=== PATIENT | female | born 1960 | race Caucasian/White ===

== ENCOUNTER 2023-05-31 08:33 | Outpatient (AMB) | payer OTHER, SELFPAY ==
[2023-05-31 08:36] VITALS: BP 120/80; PULSE 63; O2SAT 98; BMI 21.5
--- NOTE | 2023-05-31 08:36 | A.OFFPC_ITS ---
Vital Signs 05/31/23 08:36 Height 5 ft Weight 110 lb BMI 21.5 BP 120/80 Blood Pressure Location Lt brachial Position Sitting Pulse 63 Pulse Source Pulse Oximeter Pulse Oximetry (%) 98 Oxygen Delivery Method Room Air Intake Visit Reasons: Physical Exam Intake Note: Pt is here today for a PE. Pt is having sciatic pain on the L side since January. Allergies No Known Allergies Allergy (Verified 05/31/23 08:39) Medication List - Last Reconciled 05/31/23 by Kriss Dorsey MD anastrozole 1 mg PO DAILY Tobacco use date assessed: 05/31/23 Dental Screening Dental Screen Date: 05/31/23 Did you have a dental visit in the last 12 months?: Yes Did you have a dental problem in the last 6 months where you did not have access to dental care?: No Was dental information given to patient?: Patient has dentist HPI Physical Exam HPI Details Pt presents for PE. Pt had L sciatica pain(started on the left buttock radiating to left lower extremity worse when sitting or starting to walk) since Jan, better now with massage therapy. [facility] Medical History BRCA gene mutation positive Normal pelvic exam Breast CA Annual physical exam Surgical History H/O bilateral oophorectomy Family History Father Diabetes Prostate cancer Lung cancer Mother No problems noted. Social History Household Members Other:: lives with boyfriend, no children, exercise regularly, Housing: House Patient Tobacco Use Status: Former Tobacco user (15 years ago) e-Cigarette/Vaping Use: Never Used Current occupational status: employed Cognitive needs: No Hearing needs: No Vision needs: Yes Questionnaire PHQ-9 Over the last 2 weeks, how often have you been bothered by any of the following problems? 1. Little interest or pleasure in doing things: not at all 2. Feeling down, depressed, or hopeless: not at all 3. Trouble falling or staying asleep, or sleeping too much: not at all 4. Feeling tired or having little energy: not at all 5. Poor appetite or overeating: not at all 6. Feeling bad about yourself - or that you are a failure or have let yourself or your family down: not at all 7. Trouble concentrating on things, such as reading the newspaper or watching television: not at all 8. Moving or speaking so slowly that other people could have noticed. Or the opposite - being so fidgety or restless that you have been moving around a lot more than usual: not at all 9. Thoughts that you would be better off or of hurting yourself in some way: not at all Total score: 0 Depression Screening Interpretation: Negative Depression Screening Done: Yes Source: Developed by Drs. Octavio Urban, Felecia Hook, Yovani Villasenor and colleagues, with an educational arnaldo from [employer]. Thrive Questionnaire Date Thrive assessed: 05/31/23 I am a: Patient What is your living situation today?: I have a steady place to live Within the past 12 months, did the food you bought not last and you didn't have the money to get more?: Never true Within the past 12 months, did you worry whether your food would run out before you got money to buy more?: Never true Do you have trouble paying for medicines?: No Do you have trouble getting transportation to medical appointments?: No Do you have trouble paying your heating and electricity bill?: No Do you have trouble taking care of your child, family member or friend?: No Do you have trouble with day-to-day activities such as bathing, preparing meals, shopping, managing finances, etc.?: No Are you currently unemployed and looking for a job?: No Are you interested in more education?: No Please select the resources that you would like help with: None Currently or been in a relationship where the following occur: no concerns reported THRIVE Score: 0 AUDIT C Alcohol Use Questionnaire (AUDIT-C) 1. How often do you have a drink containing alcohol?: Monthly or less 2. How many drinks containing alcohol do you have on a typical day when you are drinking?: 1 or 2 3. How often do you have six or more drinks on one occasion?: Never Total Score: 1 HENRIETTA-7 AMB Questionnaire HENRIETTA-7 Date HENRIETTA - 7 assessed: 05/31/23 Feeling nervous, anxious, or on edge: 0 = Not at all Not being able to stop or control worryin = Not at all Worrying too much about different things: 0 = Not at all Trouble relaxin = Not at all Being so restless that it is hard to sit still: 0 = Not at all Becoming easily annoyed or irritable: 0 = Not at all Feeling afraid as if something awful might happen: 0 = Not at all Total HENRIETTA-7 score (0-4 normal; 5-9 mild; 10-14 moderate; 15-21 severe): 0 Source: Developed by Drs. Octavio Urban, Felecia Hook, Yovani Villasenor and colleagues, with an educational arnaldo from [employer]. Review of Systems Const All systems reviewed & are unremarkable except as noted in HPI and below Reports no additional complaints Eyes Reports no additional complaints ENT Reports no additional complaints Card Reports no additional complaints Resp Reports no additional complaints GI Reports no additional complaints Physical exam (Primary Care) Vital Signs: Last Vital Signs Pulse 63 05/31/23 08:36 BP 120/80 05/31/23 08:36 Pulse Ox 98 05/31/23 08:36 Oxygen Delivery Method Room Air 05/31/23 08:36 BMI result Body Mass Index 21.5 Tobacco/Smoking Status: Tobacco use Status Tobacco use date assessed 05/31/23 05/31/23 08:44 Patient Tobacco Use Status Former Tobacco user (15 05/31/23 08:44 years ago) e-Cigarette/Vaping Use Never Used 05/31/23 08:38 PHQ-9: PHQ-9 Score PHQ-9: Total score 0 05/31/23 08:56 Depression Screening Interpretation: Negative Thrive Assessment: Date of Thrive Assessment Date Thrive assessed 05/31/23 05/31/23 08:44 Currently or been in a relationship where the following occur: no concerns reported Const General: no acute distress HENMT Head: Yes normal to inspection Ears: hearing grossly normal bilaterally General nose exam: Normal external nose present Face and sinus: Yes normal facial exam Mouth: Normal oral and palatal mucosa present Throat: Yes posterior oropharynx normal Eyes General: appearance normal, both eyes and all related structures Neck Neck: Yes no lymphadenopathy and Yes supple Resp Effort & Inspection: normal respiratory effort Auscultation: clear to auscultation bilaterally Cardio Rhythm: regular rhythm Heart sounds: S1 normal heart sound present and S2 normal heart sound present GI Inspection: Yes normal to inspection Palpation (GI): Soft to palpation Percussion: Yes normal to percussion Auscultation: normal bowel sounds Back/Spine/Pelvis Thoracic/Lumbar Spine: thoraco-lumbar ROM normal, straight leg raise negative bilaterally, No paraspinal muscle tenderness and No lumbar spinal tenderness Assessment and Plan Assessment & Plan (1) Annual physical exam: Code(s): Z00.00 - Encounter for general adult medical examination without abnormal findings Plan: Well-balanced diet regular physical activity discussed with the patient. She will have a DEXA by Oncology. Patient had colonoscopy in September 12, consistent with 1 polyp repeat in 5 years, by Dr. Bowens (2) Breast CA: Comment: Right , s/p lumpectomy, s/p RHx and Chemo 2019, f/u [facility] Code(s): C50.919 - Malignant neoplasm of unspecified site of unspecified female breast Plan: Follow-up with [facility] oncology (3) Sciatica: Code(s): M54.30 - Sciatica, unspecified side Plan: Patient was given stretching lower back exercises and was advised to have PT but she declined (4) Hx of colonoscopy: Comment: 09/12 1 polyp, Dr. Bowens Code(s): Z98.890 - Other specified postprocedural states Orders: Orders Lipid Panel Today C50.919 - Malignant neoplasm of unspecified site of unspecifie d female breast, Z00.00 - Encounter for general adult medical examination without abnormal findings TSH reflex Free T4 Today C50.919 - Malignant neoplasm of unspecified site of unspecified female breast, Z00.00 - Encounter for general adult medical examination without abnormal findings Vitamin D 25-OH Total Today C50.919 - Malignant neoplasm of unspecified site of unspecified female breast, Z00.00 - Encounter for general adult medical examination without abnormal findings Comprehensive [place]. Panel Fast 365 Days M54.30 - Sciatica, unspecified side, Z00.00 - Encounter for general adult medical examination without abnormal findings, Z98.890 - Other specified postprocedural states Complete Blood Count Auto Diff 365 Days M54.30 - Sciatica, unspecified side, Z00.00 - Encounter for general adult medical examination without abnormal findings, Z98.890 - Other specified postprocedural states TSH reflex Free T4 365 Days M54.30 - Sciatica, unspecified side, Z00.00 - Encounter for general adult medical examination without abnormal findings, Z98.890 - Other specified postprocedural states Vitamin D 25-OH Total 365 Days M54.30 - Sciatica, unspecified side, Z00.00 - Encounter for general adult medical examination without abnormal findings, Z98.890 - Other specified postprocedural states Comprehensive [place]. Panel Fast Today C50.919 - Malignant neoplasm of unspecified site of unspecified female breast, Z00.00 - Encounter for general adult medical examination without abnormal findings Complete Blood Count Auto Diff Today C50.919 - Malignant neoplasm of unspecified site of unspecified female breast, Z00.00 - Encounter for general adult medical examination without abnormal findings Lipid Panel 365 Days M54.30 - Sciatica, unspecified side, Z00.00 - Encounter for general adult medical examination without abnormal findings, Z98.890 - Other specified postprocedural states Coding Level of Care Code Est Pt Prev Care 40-64y(01420) Diagnoses Annual physical exam Z00.00 Breast CA C50.919 Sciatica M54.30 Hx of colonoscopy Z98.890
== END 2023-05-31 09:05 | disposition home or self-care (01) ==
PROVIDERS: PCP Internal Medicine; Visit Provider Internal Medicine
DX: Z00.00 Encounter for general adult medical examination without abnormal findings (principal); C50.919 Malignant neoplasm of unspecified site of unspecified female breast; M54.30 Sciatica, unspecified side; Z98.890 Other specified postprocedural states
CPT/HCPCS: 99396

== ENCOUNTER 2023-05-31 09:06 | Outpatient (REF) | payer OTHER, SELFPAY ==
[2023-05-31 11:35] LABS: MANUAL DIFF FLAG NO
[2023-05-31 11:41] LABS: Basophils Percent Auto 0.5 % (0-2); Eosinophils Absolute Auto 0.1 X10*3/uL (0.0-0.4); Eosinophils Percent Auto 1.4 % (0-4); Hematocrit 42.3 % (37.0-47.0); Imm Gran Abs Auto 0.01 X10*3/uL (0.00-0.03); Imm Gran Pct Auto 0.3 % (0.0-0.4); Lymphocytes Absolute Auto 1.3 X10*3/uL (1.2-4.9); Lymphocytes Percent Auto 36.1 % (20-40); Mean Corpuscular HGB Conc 33.1 g/dl (31.0-35.0); Mean Corpuscular Hemoglobin 30.4 pg (27.0-33.0); Mean Platelet Volume 9.9 fL (9.4-12.3); Monocytes Absolute Auto 0.4 X10*3/uL (0.1-1.2); Monocytes Percent Auto 9.8 % (2-11); Neutrophils Absolute Auto 1.9 x10*3/uL (2.0-8.3); Neutrophils Percent Auto 51.9 % (45-73); Platelet Count 189 X10*3/uL (160-400); Red Cell Distribution Width 13.9 % (11.0-16.0); White Blood Count 3.7 X10*3/uL (4.8-10.8)
[2023-05-31 12:35] LABS: Alanine Aminotransferase 23 U/L (0-31); Albumin Level 4.3 g/dL (3.5-5.0); Alkaline Phosphatase 62 U/L (39-117); Anion Gap 14 (12-20); Aspartate Amino Transferase 28 U/L (5-31); Bilirubin Total 0.4 mg/dL (0.0-1.0); Blood Urea Nitrogen 11 mg/dL (9-16); Calcium 9.9 mg/dL (8.4-10.2); Carbon Dioxide 26 mmol/L (22-29); Chloride 106 mmol/L (96-108); Cholesterol 223 mg/dL (<200); Estimated Glomerular Filt Rate > 60; Glucose Fasting 88 mg/dL (60-99); HDL Cholesterol 57 mg/dL (>40); LDL Cholesterol Calculated 153 mg/dL (<100); Potassium 4.2 mmol/L (3.3-5.1); Sodium 142 mmol/L (135-145); Total Protein 7.6 g/dL (6.5-8.0); Triglycerides 67 mg/dL (<150)
[2023-05-31 12:39] LABS: TSH reflex Free T4 1.43 uIU/mL (0.32-4.0); Vitamin D 25-OH Total 40.3 ng/mL (>30)
== END 2023-05-31 09:07 | disposition home or self-care (01) ==
LOC: HO.HMGCLDS 09:06
PROVIDERS: PCP Internal Medicine; Visit Provider Internal Medicine
DX: Z00.00 Encounter for general adult medical examination without abnormal findings (principal); C50.919 Malignant neoplasm of unspecified site of unspecified female breast
CPT/HCPCS: 36415; 80053; 80061; 82306; 84443; 85025

== ENCOUNTER 2024-06-16 08:26 | Outpatient (REF) | payer OTHER, SELFPAY ==
[2024-06-16 10:25] LABS: MANUAL DIFF FLAG NO
[2024-06-16 10:37] LABS: Basophils Percent Auto 0.8 % (0-2); Eosinophils Absolute Auto 0.1 X10*3/uL (0.0-0.4); Eosinophils Percent Auto 1.3 % (0-4); Hematocrit 41.3 % (37.0-47.0); Hemoglobin 13.8 g/dl (12.0-16.0); Imm Gran Abs Auto 0.02 X10*3/uL (0.00-0.03); Imm Gran Pct Auto 0.4 % (0.0-0.4); Lymphocytes Absolute Auto 1.4 X10*3/uL (1.2-4.9); Lymphocytes Percent Auto 27.3 % (20-40); Mean Corpuscular HGB Conc 33.4 g/dl (31.0-35.0); Mean Corpuscular Hemoglobin 30.7 pg (27.0-33.0); Mean Platelet Volume 9.6 fL (9.4-12.3); Monocytes Absolute Auto 0.5 X10*3/uL (0.1-1.2); Monocytes Percent Auto 8.8 % (2-11); Neutrophils Absolute Auto 3.2 x10*3/uL (2.0-8.3); Neutrophils Percent Auto 61.4 % (45-73); Platelet Count 201 X10*3/uL (160-400); Red Blood Count 4.49 X10*6/uL (4.20-5.50); Red Cell Distribution Width 13.8 % (11.0-16.0); White Blood Count 5.2 X10*3/uL (4.8-10.8)
[2024-06-16 11:06] LABS: Alanine Aminotransferase 19 U/L (0-31); Albumin Level 4.2 g/dL (3.5-5.0); Alkaline Phosphatase 67 U/L (39-117); Anion Gap 13 (12-20); Aspartate Amino Transferase 28 U/L (5-31); Bilirubin Total 0.3 mg/dL (0.0-1.0); Blood Urea Nitrogen 13 mg/dL (9-16); Calcium 9.6 mg/dL (8.4-10.2); Carbon Dioxide 25 mmol/L (22-29); Chloride 108 mmol/L (96-108); Cholesterol 209 mg/dL (<200); Estimated Glomerular Filt Rate > 60; Glucose Fasting 93 mg/dL (60-99); HDL Cholesterol 74 mg/dL (>40); LDL Cholesterol Calculated 115 mg/dL (<100); Potassium 4.6 mmol/L (3.3-5.1); Sodium 141 mmol/L (135-145); Total Protein 7.6 g/dL (6.5-8.0); Triglycerides 103 mg/dL (<150)
[2024-06-16 11:27] LABS: TSH reflex Free T4 2.55 uIU/mL (0.32-4.0)
== END 2024-06-16 08:27 | disposition home or self-care (01) ==
LOC: HO.HMGCLDS 08:26
PROVIDERS: PCP Internal Medicine; Visit Provider Internal Medicine
DX: Z00.00 Encounter for general adult medical examination without abnormal findings (principal); E78.5 Hyperlipidemia, unspecified; E55.9 Vitamin D deficiency, unspecified; Z85.3 Personal history of malignant neoplasm of breast; Z92.21 Personal history of antineoplastic chemotherapy
CPT/HCPCS: 36415; 80053; 80061; 82306; 84443; 85025; 96127

== ENCOUNTER 2024-06-16 08:26 | Outpatient (AMB) | payer OTHER, SELFPAY ==
[2024-06-16 08:30] VITALS: BP 110/78; PULSE 77; RESP 18; TEMP 36.4; O2SAT 99; BMI 23.6
--- NOTE | 2024-06-16 08:30 | A.OFFPC_ITS ---
Vital Signs 06/16/24 08:30 Height 5 ft Weight 121 lb BMI 23.6 BP 110/78 Blood Pressure Location Rt brachial Position Sitting Respiration 18 Pulse 77 Pulse Source Pulse Oximeter Temp 97.6 F Temp Source Oral Pulse Oximetry (%) 99 Oxygen Delivery Method Room Air Intake Visit Reasons: Physical Exam Intake Note: Pt is here today for PE. Allergies No Known Allergies Allergy (Verified 06/16/24 08:35) Medication List - Last Reconciled 06/16/24 by Kriss Dorsey MD anastrozole 1 mg PO DAILY Tobacco use date assessed: 06/16/24 Dental Screening Dental Screen Date: 06/16/24 Did you have a dental visit in the last 12 months?: Yes Did you have a dental problem in the last 6 months where you did not have access to dental care?: No Was dental information given to patient?: Patient has dentist HPI Physical Exam HPI Details Pt presents for PE. [facility] Medical History (Updated 06/16/24 @ 09:13 by Kriss Dorsey MD) BRCA gene mutation positive Normal pelvic exam Breast CA Annual physical exam Surgical History H/O bilateral oophorectomy Family History Father Diabetes Prostate cancer Lung cancer Mother No problems noted. Social History Household Members Other:: lives with boyfriend, no children, exercise regularly, Housing: House Patient Tobacco Use Status: Former Tobacco user (15 years ago) e-Cigarette/Vaping Use: Never Used service: No Current occupational status: employed Cognitive needs: No Hearing needs: No Vision needs: Yes Questionnaire PHQ-9 Over the last 2 weeks, how often have you been bothered by any of the following problems? 1. Little interest or pleasure in doing things: not at all 2. Feeling down, depressed, or hopeless: not at all 3. Trouble falling or staying asleep, or sleeping too much: not at all 4. Feeling tired or having little energy: not at all 5. Poor appetite or overeating: not at all 6. Feeling bad about yourself - or that you are a failure or have let yourself or your family down: not at all 7. Trouble concentrating on things, such as reading the newspaper or watching television: not at all 8. Moving or speaking so slowly that other people could have noticed. Or the opposite - being so fidgety or restless that you have been moving around a lot more than usual: not at all 9. Thoughts that you would be better off or of hurting yourself in some way: not at all Total score: 0 Depression Screening Interpretation: Negative Depression Screening Done: Yes 62124 - PHQ-9 Billing: Yes Source: Developed by Drs. Octavio Urban, Felecia Hook, Yovani Villasenor and colleagues, with an educational arnaldo from [employer] Thrive Questionnaire Date Thrive assessed: 06/16/24 I am a: Patient What is your living situation today?: I have a steady place to live Within the past 12 months, did the food you bought not last and you didn't have the money to get more?: Never true Within the past 12 months, did you worry whether your food would run out before you got money to buy more?: Never true Do you have trouble paying for medicines?: No Do you have trouble getting transportation to medical appointments?: No Do you have trouble paying your heating and electricity bill?: No Do you have trouble taking care of your child, family member or friend?: No Do you have trouble with day-to-day activities such as bathing, preparing meals, shopping, managing finances, etc.?: No Are you currently unemployed and looking for a job?: No Are you interested in more education?: No Please select the resources that you would like help with: None Currently or been in a relationship where the following occur: No concerns reported THRIVE Score: 0 AUDIT C Alcohol Use Questionnaire (AUDIT-C) 1. How often do you have a drink containing alcohol?: Monthly or less 2. How many drinks containing alcohol do you have on a typical day when you are drinking?: 3 or 4 3. How often do you have six or more drinks on one occasion?: Never Total Score: 2 HENRIETTA-7 AMB Questionnaire HENRIETTA-7 Date HENRIETTA - 7 assessed: 06/16/24 Feeling nervous, anxious, or on edge: 0 = Not at all Not being able to stop or control worryin = Not at all Worrying too much about different things: 0 = Not at all Trouble relaxin = Not at all Being so restless that it is hard to sit still: 0 = Not at all Becoming easily annoyed or irritable: 0 = Not at all Feeling afraid as if something awful might happen: 0 = Not at all Total HENRIETTA-7 score (0-4 normal; 5-9 mild; 10-14 moderate; 15-21 severe): 0 Source: Developed by Drs. Octavio Urban, Felecia Hook, Yovani Villasenor and colleagues, with an educational arnaldo from [employer] HENRIETTA-7 Assessment Billing HENRIETTA-7 Assessment Tool: HENRIETTA-7 Assessment 65621 Review of Systems Const All systems reviewed & are unremarkable except as noted in HPI and below Reports no additional complaints Eyes Reports no additional complaints ENT Reports no additional complaints Card Reports no additional complaints Resp Reports no additional complaints GI Reports no additional complaints Physical exam (Primary Care) Vital Signs: Last Vital Signs Temp 97.6 F 06/16/24 08:30 Pulse 77 06/16/24 08:30 Resp 18 06/16/24 08:30 BP 110/78 06/16/24 08:30 Pulse Ox 99 06/16/24 08:30 Oxygen Delivery Method Room Air 06/16/24 08:30 BMI result Body Mass Index 23.6 Tobacco/Smoking Status: Tobacco use Status Tobacco use date assessed 06/16/24 06/16/24 08:38 Patient Tobacco Use Status Former Tobacco user (15 06/16/24 08:30 years ago) e-Cigarette/Vaping Use Never Used 06/16/24 08:30 PHQ-9: PHQ-9 Score PHQ-9: Total score 0 06/16/24 08:38 Depression Screening Interpretation: Negative Thrive Assessment: Date of Thrive Assessment Date Thrive assessed 06/16/24 06/16/24 08:38 Currently or been in a relationship where the following occur: No concerns reported Const General: no acute distress HENMT Head: Yes normal to inspection Ears: hearing grossly normal bilaterally Face and sinus: Yes normal facial exam Mouth: Normal oral and palatal mucosa present Throat: Yes posterior oropharynx normal Eyes General: appearance normal, both eyes and all related structures Neck Neck: Yes no lymphadenopathy and Yes supple Resp Effort & Inspection: normal respiratory effort Auscultation: clear to auscultation bilaterally Cardio Rhythm: regular rhythm Heart sounds: S1 normal heart sound present and S2 normal heart sound present GI Inspection: Yes normal to inspection Palpation (GI): Soft to palpation Percussion: Yes normal to percussion Auscultation: normal bowel sounds Coding Level of Care Code Est Pt Prev Care 40-64y(43590) Diagnoses Breast CA C50.919 Annual physical exam Z00.00 Hx of colonoscopy Z98.890 Hyperlipidemia E78.5 Additional Codes HENRIETTA-7 Assessment Billing - HENRIETTA-7 Assessment Tool: HENRIETTA-7 Assessment 00628 ([id number]) PHQ-9 - 84305 - PHQ-9 Billing: Yes ([id number]) Assessment & Plan Assessment & Plan (1) Breast CA: Comment: Right , s/p lumpectomy, s/p RHx and Chemo 2018, f/u [facility] Code(s): C50.919 - Malignant neoplasm of unspecified site of unspecified female breast Category: Medical Plan: FOLLOW-UP WITH ONCOLOGY (2) Annual physical exam: Code(s): Z00.00 - Encounter for general adult medical examination without abnormal findings Category: Medical Plan: Well-balanced diet regular physical activity discussed with the patient. She is up-to-date with the mammogram at colonoscopy in 2022 and will have DEXA with Oncology, patient declined Pap smear (3) Hx of colonoscopy: Comment: 09/12 1 polyp, Dr. Bowens Code(s): Z98.890 - Other specified postprocedural states Category: Surgical Plan: Follow-up with GI (4) Hyperlipidemia: Code(s): E78.5 - Hyperlipidemia, unspecified Category: Medical Plan: Low-cholesterol diet discussed with the patient. She will have a fasting blood work today if LDL cholesterol is elevated patient will have lipid profile rechecked in few months. Orders: Orders Vitamin D 25-OH Total 1 Year E55.9 - Vitamin D deficiency, unspecified, E78.5 - Hyperlipidemia, unspecified, Z00.00 - Encounter for general adult medical examination without abnormal findings Comprehensive [place]. Panel Fast 1 Year E55.9 - Vitamin D deficiency, unspecified, E78.5 - Hyperlipidemia, unspecified, Z00.00 - Encounter for general adult medical examination without abnormal findings Complete Blood Count Auto Diff 1 Year E55.9 - Vitamin D deficiency, unspecified, E78.5 - Hyperlipidemia, unspecified, Z00.00 - Encounter for general adult medical examination without abnormal findings Lipid Panel 1 Year E55.9 - Vitamin D deficiency, unspecified, E78.5 - Hyper lipidemia, unspecified, Z00.00 - Encounter for general adult medical examination without abnormal findings TSH reflex Free T4 1 Year E55.9 - Vitamin D deficiency, unspecified, E78.5 - Hyperlipidemia, unspecified, Z00.00 - Encounter for general adult medical examination without abnormal findings
--- OUTSIDE RECORDS SUMMARY | 2024-06-16 08:48 | XMS_ITS | Data Portability ---
Author Organization [place] - [facility],, GWENDOLYN JIMÉNEZ MD Address [address] [address] Assessment No assessment recorded. Plan of Treatment Reminders Order Date Submit Date Provider Last Modified By Organization Details Last Modified Time Details Appointments None recorded. Lab pap test, thinprep, cervical 2018 019 LORIE [facility], Cytopathology Service, [address] [place] [address], [address], 9 13:51:46 pap test, thinprep, cervical 2016 017 [email or web address] [facility], Cytopathology Service, [address] [place] [address], [address], 7 11:23:10 fecal occult blood, stool 2016 017 [email or web address] 1 In-Office Order, Internal Use Only DO Not Attach Compendium DO Not Attach Compendium, Do Not Delete/merge, [id number] 7 11:13:46 pap test, thinprep, cervical 2015 016 [id number] [facility], Cytopathology Service, [address] [place] [address], [address], 6 04:20:33 fecal occult blood, stool 2015 016 [id number] In-Office Order, Internal Use Only DO Not Attach Compendium DO Not Attach Compendium, Do Not Delete/merge, [id number] 6 04:20:33 Referral breast surgery referral - BRCA 2 positive patient. She would like to participa te in your high risk breast program. 2018 019 [facility] Imaging Orders, [address], [address], [place], [address], 9 13:52:00 Procedures None recorded. Surgeries None recorded. Imaging MAMMO, screening , digital, bilateral 2018 019 [facility] (Mammography), [address] [place], [address], 0 07:33:23 MAMMO, screening , digital, bilateral [address] [facility] (Mammography), [address] [place], [address], 8 07:41:13 MAMMO, screening , digital, bilateral - she is positive for BRCA 2 mutation 2016 017 [facility] (Mammography), [address] [place], [address], 7 14:53:52 MRI, breast, bilateral , w/wo contrast - she is positive for BRCA [address] [facility] (Mammography), [address] [place], [address], 8 08:46:04 MAMMO, screening , digital, bilateral [address] [facility] (Mammography), [address] [place], [address], 7 13:56:03 Medication Orders Percocet 5 mg-325 mg tablet 2015 016 [id number], [address], [place], [id number], 6 10:37:34 Patient TargetsNo targets recorded. Patient Instructions Encounter Date Encounter Id Patient Instructions Last Modified By Organization Details Last Modified Time 05/25/2015 [id number] She is here for discussion of her upcoming surgery. She is scheduled for risk reducing BSO, she is BRCA 2 positive. She has chosen Da Allison approach. She is aware that this is an elective procedure, done to possibly decrease??her potential lifetime risk of development of ovarian cancer, however there still exists a 1 to 3% risk of development of ovarian cancer, likely from rest cells. We discussed the surgical ports, their closure, and the need ot return for suture removal. She is also aware of the small risk of laparotomy,?? in the case that laparoscopy is not technically feasible. Positioning in steep Trendelenburg was previously discussed. We discussed the risks of surgery, including , stroke, DVT/PE, hemorrhage, infection, and injury to bowel/bladder or pelvic organs.?? We discussed the possibility that surgery may not resolve the problems that she is experiencing. We discussed the potential risks of anesthesia.?? All questions were answered.?? Consent for surgery was explained and signed. She appears ready for the proposed surgery. An RX for narcotics {{was* was not}} given. Face to face discussion 25 minutes [email or web address] Not available 05/25/2015 16:40:25 06/14/2015 [id number] She is here for her follow up appointment after Da Allison BSO 6 days ago. She feels well, no pain or change in bowel or bladder. Path was benign. Sutures removed, incisions healving well, no sign of infection or complication. Post op care, no lifting more than 20 pounds for 6 weeks. Return for annual exam. Not available 06/14/2015 11:33:32 01/26/2016 [id number] She is here for annual exam, is doing well. She is BRCA positive, had risk reducing BSO in 05/2015. She is advised to get 1500 mg of calcium daily into her diet and supplements combined. We discussed the benefits of adequate vitamin D supplementation to at least 400 units daily, daily aerobic exercise of 30 minutes, and stress reduction. Monthly self breast exam was taught, and stressed, and is advised to call if she discovers any new mass in the breast. Seat belt use for herself and passengers advised. The significant health benefits of becoming and remainig fit, with an optimal BMI, were also discussed. We discussed the potential reduction in chronic discomfort, the diminished risks of hypertension, diabetes, and heart disease with the proper weight management, and improved mobility as she ages. Strategies to reach and maintain her target weight wer discussed in detail, all questions answered. Not available 01/26/2016 11:17:31 01/25/2017 [id number] She is here for annual exam, is doing well. She is BRCA 2 positive, had risk reducing BSO in 05/2015. Pathology was negative. Her last MRI and mammogram were 04/2015, she is overdue. Tests are both ordered. She understands that she should be getting these tests every 12 months, She agrees to try to be on time next year. We called over and set up the mammogram time for her, will get prior auth and get the MRI set up as well. We had a discussion and offered to send her to consult with a breast surgeon to discuss posible risk reducing bilateral mastectomy. We disucssed how it is done and that she woudl have implants afterward, if she would like to do that. She understands but declines. she is aware that she has a personal risk of development of breast cancer many times that of the average woman, but for now she declines risk reducing surgery. I'm not ready to talk about that right now. She has met Dr. Orlando in the past to discuss this, and liked her, but does not want to do the procedure. She appears to be doing well. She is advised to get 1500 mg of calcium daily into her diet and supplements combined. We discussed the benefits of adequate vitamin D supplementation to at least 400 units daily, daily aerobic exercise of 30 minutes, and stress reduction. Monthly self breast exam was taught, and stressed, and is advised to call if she discovers any new mass in the breast. Seat belt use for herself and passengers advised. The significant health benefits of becoming and remainig fit, with an optimal BMI, were also discussed. We discussed the potential reduction in chronic discomfort, the diminished risks of hypertension, diabetes, and heart disease with the proper weight management, and improved mobility as she ages. Strategies to reach and maintain her target weight wer discussed in detail, all questions answered. Not available 01/25/2017 11:18:54 06/27/2018 [id number] She is here for annual exam, is BRCA 2 positive, had risk reducing ovarian surgery. She is getting rare mild to moderate vasomotor symptoms. Mammo 05/11, breast screening MRI 05/2018 both negative. She had previously seen Dr. Orlando to discuss risk reducing mastectomy but she had declined, she would like to be part of a high risk program, however. note from 01/2017: She is here for annual exam, is doing well. She is BRCA 2 positive, had risk reducing BSO in 05/2015. Pathology was negative. Her last MRI and mammogram were 04/2015, she is overdue. Tests are both ordered. She understands that she should be getting these tests every 12 months, She agrees to try to be on time next year. We called over and set up the mammogram time for her, will get prior auth and get the MRI set up as well. We had a discussion and offered to send her to consult with a breast surgeon to discuss posible risk reducing bilateral mastectomy. We disucssed how it is done and that she woudl have implants afterward, if she would like to do that. She understands but declines. she is aware that she has a personal risk of development of breast cancer many times that of the average woman, but for now she declines risk reducing surgery. I'm not ready to talk about that right now. She has met Dr. Orlando in the past to discuss this, and liked her, but does not want to do the procedure. She appears to be doing well. A referral is made to [facility] Breast [facility] Wellness program. She is advised to get 1500 mg of calcium daily into her diet and supplements combined. We discussed the benefits of adequate vitamin D supplementation to at least 400 units daily, daily aerobic exercise of 30 minutes, and stress reduction. Monthly self breast exam was taught, and stressed, and is advised to call if she discovers any new mass in the breast. Seat belt use for herself and passengers advised. The significant health benefits of becoming and remainig fit, with an optimal BMI, were also discussed. We discussed the potential reduction in chronic discomfort, the diminished risks of hypertension, diabetes, and heart disease with the proper weight management, and improved mobility as she ages. Strategies to reach and maintain her target weight wer discussed in detail, all questions answered. Not available 06/27/2018 16:03:50 Reason for Referral Breast Surgery Referral for BRCA2 gene mutation detected refer to high risk breast care program BRCA 2 positive patient. She would like to participate in your high risk breast program. Referring Physician: Gwendolyn Jiménez, Gynecology, Encounter Date: 06/27/2018 Results Created Date Observation Date Name Description Value Unit Range Abnormal Flag Note LastModifiedBy Organization Detail LastModifiedTime 01/26/2001/25/2017 fecal occul t blood , stool Occult Blood negati ve Not Available In-Office Order Internal Use Only DO Not Attach Compendium DO Not Attach Compendium, Do Not Delete/merge, [id number] 01/25/2017 10:56:30 01/26/20 16 01/26/2016 fecal occul t blood , stool Occult Blood negati ve Not Available In-Office Order Internal Use Only DO Not Attach Compendium DO Not Attach Compendium, Do Not Delete/merge, [id number] 01/26/2016 10:39:34 06/08/19 16 06/08/2015 patho logy study cytologycase PERIT SHUKLA WASHI NG: CYTOL OGY AND CELL BLOCK : -NEGA TIVE FOR MALIG NANT CELLS . -See also eugenio t S16-2 848. Marquis dsouza M.D., Patho logis t (Case elect winnie haroldozenon sohail d 06 09 2015) CLINI ROSA M INFOR MATIO N: BR CA Posit stefano SOURC E: Perit shukla Washi ng Gross Descr iptio n: rec 20ml sl cloud y sl yello w tinge d fluid 1tp, celli ent Physi LEAH King N /#[id number] [id number]/2 [id number] 9 Cytop athol ogy servi wendi provi ded by [facility] at the above addre ss. Not Available [facility], Cytopathology Service [address] [facility], [place], [address], 06/09/2015 16:50:55 06/08/19 16 06/08/2015 surgi rosa m patho logy study surgicalcase A.OVA RY AND FALLO PIAN TUBE, LEFT, SALPI ROGERS-O OPHOR ECTOM Y: - EPITH ELIAL INCLU TOBIN CYSTS AND CYSTI C FOLLI CLES. - NEGAT STEFANO FOR DANGELO MEDEROS . B.OVA RY AND FALLO PIAN TUBE, RIGHT , SALPI ROGERS-O OPHOR ECTOM Y: - HEMOR RHAGI C CYSTI C FOLLI CLES. - SULY ESONE PHRIC CYST. - NEGAT STEFANO FOR DANGELO MEDEROS . Marquis dsouza M.D., Patho logis t (Case elect winnie sauceda d 06 10 2015) Diagn osis Note A. and B. INTRA DEPAR TMENT AL CONSU LTANT : Dr. Brittany Pryor . Pre-O p/Cli nical Diagn osis: BRACA POSIT STEFANO Speci men and Site: A. OVARY AND FALLO PIAN TUBE, LEFT- SALPI NGOOP HOREC TRAMAINE B. OVARY AND FALLO PIAN TUBE, RIGHT -SALP INGOO PHORE CTOMY Gross Descr iptio n: A. Label ed left tube and ovary . Recei sylvia in forma reji is a 3.6 gram adnex a consi sting of a 1.8 x 1.5 x 1.2 cm ovary with an attac hed 3.0 x 0.45 cm fimbr iated fallo pian tube. The ovari an capsu le is fox-p ink to red, justine h and intac t. The cut surfa wendi of the ovary show a fox-p ink eric a with multi ple corpo ra albic antia . The attac hed fimbr iated fallo pian tube has a pink- red seros a and on secti oning shows a centr al, pinpo int lumen . Repre senta tive secti ons are submi tted in one casse tte, four piece s, inclu ding secti ons of the ovary , a cross -sect ion of the fallo pian tube and a longi tudin al secti on of the fimbr iated end. The eric negrete speci men is submi tted in christophere ttes 2 and 3, as a gross recut (2-ov jethro, four piece s, 3-rem ainin g ovary , cross -sect ions of fallo pian tube and a longi tudin al secti on of the fimbr iated end, five piece s). B. Label ed righ t tube and ovary . Recei sylvia in forma reji is a 4.0 gram adnex a consi sting of a 2.0 x 1.8 x 1.3 cm ovary with an attac hed 3.5 x 0.45 cm fimbr iated fallo pian tube. The ovari an capsu le is fox-p ink to red, justine h and intac t. The cut surfa wendi of the ovary show a fox-p ink eric a with multi ple corpo ra albic antia . There are a few justine h-wal led, unilo cular cyst measu ring up to 0.25 cm in great est diame ter which conta in temitope late- brown fluid . The attac hed fimbr iated fallo pian tube has a pink- red seros a and on secti oning shows a centr al, pinpo int lumen . The tube has a few parat ubal cysts prese nt measu ring up to 0.3 cm in great est diame ter. On secti oning the cysts have a justine h linin g and conta in clear fluid . Repre senta tive secti ons are submi tted in one casse tte, six piece s, inclu ding secti ons of the ovary , a cross -sect ion of the fallo pian tube and parat ubal cyst and a longi tudin al secti on of the fimbr iated end. The eric negrete speci men is submi tted in entir ety in christophere ttes 2 and 3, as a gross recut (2- ovary , three piece s, 3-rem ainin g ovary , cross -sect ions of fallo pian tube and a longi tudin al secti on of the fimbr iated end, eight piece s). TS Physi cians : LEAH CUELLO N /#[phone]/2 [id number] Anato ghislaine Patho logy servi wendi provi ded by Paresh Rothman nd Patho logy Hemanth Whitten. Not Available [facility], Cytopathology Service [address] [place], [address], 06/10/2015 14:45:44 01/26/20 17 01/25/2017 pap, LB [id number] ThinP rep Pap, Image d: NEGAT STEFANO FOR SQUAM OUS INTRA EPITH ELIAL LESIO N AND MALIG GATITO . Atrop hy. Tiffany Gray a, CT( CP) (Case elect winnie guerra sohail d 01 26 2017) ADEQU ACY: Satis facto ry. SOURC E: ThinP rep Pap HPV IF ASCUS , Cervi rosa m, Image d: CLINI ROSA M INFOR MATIO N: HPV If Diagn osis of ASCUS . Z12.4 , Z01.4 19, MENOP AUSE Not Available [facility], Cytopathology Service [address] [place], [address], 01/26/2017 14:20:53 06/28/19 19 06/27/2018 pap, LB [id number] ThinP rep Pap, Image d: NEGAT STEFANO FOR SQUAM OUS INTRA EPITH ELIAL LESIO N AND MALIG GATITO . Atrop hy. Tiffany Gray a , CT( CP) (Case elect winnie guerra sohail d 07 01 2018) ADEQU ACY: Satis facto ry . SOURC E: ThinP rep Pap HPV IF ASCUS , Cervi rosa m, Image d CLINI ROSA M INFOR MATIO N: HPV If Diagn osis of ASCUS . LPS NEG, Z12.4 Not Available [facility], Cytopathology Service [address] [place], [address], 07/01/2018 13:51:46 05/14/19 16 05/13/2015 MRI, breas t No observ ation [email or web address] [address] [place], [address], 05/14/2015 13:29:12 04/12/20 17 04/12/2017 MAMMO , scree caden, digit al, bilat eral No observ ation record ed. [address] Diagnosit Imaging Dept [address] [place], [address], 04/12/2017 15:12:49 07/08/19 18 07/04/2017 MRI, breas t, bilat eral, w/wo contr ast No observ ation record ed. [facility] Diagnosit Imaging Dept [address] [place] [address], [address], 08/13/2017 11:57:37 08/23/19 18 08/22/2017 US, breas t No observ ation record ed. [facility] Diagnosit Imaging Dept [address] [place] [address], [address], 08/23/2017 14:36:56 08/23/19 18 08/22/2017 MAMMO , diagn ostic , digit al, unila teral No observ ation record ed. [facility] Diagnosit Imaging Dept [address] [place] [address], [address], 08/23/2017 14:36:56 04/24/19 19 04/24/2018 MAMMO , scree caden, digit al, bilat eral No observ ation record ed. [address] Diagnosit Imaging Dept [address] [place] [address], [address], 04/24/2018 10:09:22 05/31/19 19 05/29/2018 MRI, breas t, bilat eral, w/wo contr ast No observ ation record ed. [facility] Diagnosit Imaging Dept [address] [place] [address], [address], 06/03/2018 10:29:50 02/19/20 19 02/18/2019 MAMMO , diagn ostic , digit al, unila teral No observ ation record ed. [facility] (Outpt Imaging) [address], [place], [address], 02/27/2019 09:10:24 02/25/20 19 02/24/2019 ultra sound guide d core biops y (PROC ) No observ ation record ed. [facility] Breast And Wellness Imaging Orders [address], [place], [address], 02/24/2019 10:45:51 02/28/20 19 02/24/2019 ultra sound guide d core biops y (PROC ) No observ ation record ed. [facility] Breast And Wellness Imaging Orders [address], [place], [address], 02/27/2019 15:24:38 Result Notes None recorded. Problems Name Problem SNOMED Code Status Onset Date Resolution Date Notes Provider Name and Address Organization Details Recorded Time BRCA2 gene mutation detected 539907767 Active She had risk reducing BSO in 05/2015 Gwendolyn Jiménez MD [address], [place], [address], [place] [facility], 6 11:06:00 Mammography abnormal 897305716 Active Gwendolyn Jiménez MD [address], [place], [address], [place] [facility], 6 11:33:38 Cyst of ovary 02282632 Active Gwendolyn Jiménez MD [address], [place], [phone], [place] [facility], 6 11:33:38 Problem Notes None recorded. Procedures Surgical History Date Name Laterality Status Provider Name and Address Organization Details Recorded Time 6 Oophorectomy completed Maryuri Hardy [place] - [facility], 06/14/2015 10:32:24 2 Other completed Evelia Panchal [place] - [facility], 05/25/2015 14:34:06 Imaging Results Imaging Date Name Status LastModified by Carlyle reesion Details LastModified Time 05/13/2015 [facility] Diagnosit Imaging Dept [address] [place] [address], [address], 05/14/2015 13:29:12 04/12/2017 MAMMO, screening, digital, bilateral completed [address] Diagnosit Imaging Dept [address] [place] [address], [address], 04/12/2017 15:12:49 07/04/2017 MRI, breast, bilateral, w/wo contrast completed [facility] Diagnosit Imaging Dept [address] [place] [address], [address], 08/13/2017 11:57:37 08/22/2017 US, breast completed [facility] Diagnosit Imaging Dept [address] [place] [address], [address], 08/23/2017 14:36:56 08/22/2017 MAMMO, diagnostic, digital, unilateral completed [facility] Diagnosit Imaging Dept [address] [place] [address], [address], 08/23/2017 14:36:56 04/24/2018 MAMMO, screening, digital, bilateral completed [address] Diagnosit Imaging Dept [address] [place] [address], [address], 04/24/2018 10:09:22 05/29/2018 MRI, breast, bilateral, w/wo contrast completed [facility] Diagnosit Imaging Dept [address] [place] [address], [address], 06/03/2018 10:29:50 02/18/2019 MAMMO, diagnostic, digital, unilateral completed [facility] (Outpt Imaging) [address] [place], [address], 02/27/2019 09:10:24 02/24/2019 ultrasound guided core biopsy (PROC) completed [facility] Well[facility] Imaging Orders [address], [place], [address], 02/24/2019 10:45:51 02/24/2019 ultrasound guided core biopsy (PROC) completed [email or web address] [facility] Breast [facility] Well[facility] Imaging Orders [address], [place], [address], 02/27/2019 15:24:38 Procedure Notes None recorded. Medical Equipment None Reported. Allergies No known drug allergies Medications Name Sig Start Date Stop Date Status Note LastModified by Organization Details LastModified Time amoxicillin 500 mg capsule active Not Available Not Available Not Available penicillin V potassium 500 mg tablet active Not Available Not Available No t Available oxycodone-rebecca taminophen 5 mg-325 mg tablet Take 1 tablet every 6 hours by oral route as needed. 01/25 completed Not Available Not Available Not Available baclofen 10 mg tablet active Not Available Not Available No t Available etodolac 400 mg tablet active Not Available Not Available No t Available chlorhexidine gluconate 0.12 % mouthwash active Not Available Not Available No t Available Vitals Date Recorded Body height Body mass index (BMI) Body weight Heart rate Systolic blood pressure Diastolic blood pressure Provider Name and Address Organization Details Last Updated DateTime 7 149.86 cm 24 kg/m2 58182.4 9 g 68 /min 144 mm[Hg] 93 mm[Hg] Evelia Somers in [facility], 7 10:54:49 Date Recorded Body height Body mass index (BMI) Body weight Heart rate Systolic blood pressure Diastolic blood pressure Provider Name and Address Organization Details Last Updated DateTime 9 148.59 cm 24.4 kg/m2 54006.4 9 g 76 /min 137 mm[Hg] 89 mm[Hg] Evelia Somers in [facility], 9 14:57:20 Date Recorded Body mass index (BMI) Body weight Body height Heart rate Systolic blood pressure Diastolic blood pressure Provider Name and Address Organization Details Last Updated DateTime 6 24.7 kg/m2 35186.7 08907 g 149.86 cm 81 /min 134 mm[Hg] 94 mm[Hg] Evelia Seamanalejandrina Somers in [facility], 6 14:34:05 Date Recorded Body height Body weight Heart rate Body mass index (BMI) Systolic blood pressure Diastolic blood pressure Provider Name and Address Organization Details Last Updated DateTime 6 149.86 cm 08299.8 6151 g 73 /min 24.8 kg/m2 142 mm[Hg] 94 mm[Hg] Maryuri Somers in [facility], 6 10:32:24 Date Recorded Body height Body weight Body mass index (BMI) Heart rate Systolic blood pressure Diastolic blood pressure Provider Name and Address Organization Details Last Updated DateTime 6 149.86 cm 56787.9 9 g 24.7 kg/m2 75 /min 132 mm[Hg] 88 mm[Hg] Maryuri Somers in [facility], 6 10:36:36 Social History Question Answer Notes LastModified by Organizat ion Details LastModified Time Tobacco Smoking Status Former Smoker quit over 2yrs Not Available [facility] 02/24/2020 03:19:40 What Is Your Level Of Alcohol Consumption? Occasional [id number] Information not available 02/24/2020 What Is Your Level Of Caffeine Consumption? Occasional [id number] Information not available 02/24/2020 What Type Of Diet Are You Following? REGULAR [id number] Information not available 02/24/2020 Which Illicit Or Recreational Drugs Have You Used? No [id number] Information not available 02/24/2020 Do You Reside In Or Have You Traveled To An Area Where Ebola Virus Transmission Is Active? Yes 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 2 Information not available 01/26/2016 High Number Of Sexual Partners No Information not available 01/26/2016 To Which Gender Do You Self-identify? Female Information not available 01/26/2016 Marital Status Single Informatio n not available 12/08/2013 What Was The Date Of Your Most Recent Tobacco Screening? 06/27/2018 [id number] Information not available 02/24/2020 Are You Sexually Active? Yes [id number] Information not available 02/24/2020 How Much Tobacco Do You Smoke? No [id number] Information not available 02/24/2020 General Stress Level Medium Information not available 12/08/2013 How Many Years Have You Smoked Tobacco? 15 [id number] Information not available 02/24/2020 Have You Recently (within The Last 12 Weeks, Or During A Current ) Traveled To Or Lived In A Zika-affected Area? No Information not available 01/26/2016 Sex: Unknown Functional Status Question Answer Note LastModified by Organization D etails LastModified Time What is your exercise level? Moderate [id number] Information not available 02/24/2020 Mental Status None recorded. Family History Relationship Description Onset Age of this Age Resolved Age Notes LastModified by Organization Details LastModified Time Sister Malignant tumor of breast 45 sister Not available 05/25 11:32:44 Paternal Aunt Malignant tumor of breast 52 Not available 05/25 11:32:44 Paternal Grandfather Problem prosta te ca Not available 06/14/2015 11:32:44 Father Problem BRCA 2 postii ve Not available 06/14/2015 11:32:44 Brother Problem brca 2 positi ve Not available 06/14/2015 11:32:44 Medical History Condition Response Anesthesia complications N High Blood Pressure N Candidate for MyRisk panel Y Autoimmune Condition N Kidney or Bladder Problems N Thyroid Problems N Depression N Lung Disease N GI Problems N Defects or Inherited Disease N Anemia N History of Ovarian Cancer N History of Breast Cancer N TUNG exposure N BRCA testing in past Y Osteopenia N Psychiatric Illness N Anxiety Disorder N Diabetes N Arthritis N Headaches or Migraines N Infertility N Asthma N History of Cancer N Endometriosis N Hepatitis N Heart Disease N Hypertension N Osteoporosis N Gynecological History Statement/Question Response Dysmenorrhea N Date of LMP 10/20/2013 Frequency of Cycle (Q days) Menses Monthly N Duration of Flow (days) 3 Age at Menarche 18 Current Control Method None Age at First Child 2 Obstetrics History GPAL:G 0 P 0 0 0 0 Past Encounters Encounter ID Performer Location Encounter Start Date Encounter Closed Date Diagnosis/Indication Diagnosis SNOMED-CT Code Diagnosis ICD10 Code Diagnosis Note [id number] Evelia Panchal GWENDOLYN JIMÉNEZ MD [address] [place] [address], [place] [facility] [address] 12/08/2013 15:24:38 12/09/2013 09:04:46 Specialized medical examination [id number] Screening for malignant neoplasm of rectum 128264446 Screening mammography 86943989 BRCA2 gene mutation detected [id number] GWENDOLYN JIMÉNEZ MD [address] [place] [address] [place] [facility] [address] 12/21/2014 15:20:18 12/22/2014 08:29:20 Specialized medical examination [id number] Screening for malignant neoplasm of rectum 717713676 Screening mammography 73243077 Cyst of ovary 31982074 BRCA2 gene mutation detected [id number] MD GWENDOLYN Allen MD [address] [place] [address] [place] [address] 05/06/2015 14:35:55 05/06/2015 16:10:32 BRCA2 gene mutation detected 712976153 Z15.01 [id number] MD GWENDOLYN Allen MD [address] [place] [address], [place] [address] 05/25/2015 14:17:10 05/26/2015 10:48:00 BRCA2 gene mutation detected [id number] Z15.01 [id number] MD GWENDOLYN Allen MD [address] [place] [address], [place] [address] 06/14/2015 10:25:40 06/14/2015 11:44:54 Postoperative follow-up visit [id number] Z09 [id number] MD GWENDOLYN Allen MD [address] [place] [address], [place] [address] 01/26/2016 10:28:10 01/26/2016 11:29:24 Specialized medical examination 73158818 Z01.419 Screening for malignant neoplasm of rectum 109390598 Z12.12 Screening mammography 24 462599 Z12.31 BRCA2 gene mutation detected 358993113 Z15.01 [id number] MD GWENDOLYN Allen MD [address] [facility] [place] [address] 01/25/2017 10:35:33 01/25/2017 12:00:51 Specialized medical examination 42752375 Z01.419 Screening for malignant neoplasm of rectum 201882022 Z12.12 Screening mammography 24 716559 Z12.31 BRCA2 gene mutation detected [id number] Z15.01 [id number] MD GWENDOLYN Allen MD [address] [facility], [address] [place] [address] 06/27/2018 14:52:54 06/27/2018 16:04:36 Specialized medical examination 29029915 Z01.419 Screening mammography 24 456032 Z12.31 BRCA2 gene mutation detected 600500293 Z15.01 Health Concerns Section Related Observation LastModified by Organization Detai ls LastModified Time None Recorded Concern Status LastModified by Organization Details LastModified Time None Recorded Advance Directives Directive None Recorded Payers Encounter Date Sequence Insurance Name Policy Number Policy Trammell Covered Member ID Trammell Member ID Guarantor Name 05/25/2015 1 [employer] (INDEMNITY) [id number] 3 Brigette Facchini [id number] Brigette Facchini 06/14/2015 1 [employer] ([employer]MNITY) [id number] Brigette Facchini [id number] Brigette Facchini 01/26/2016 1 [employer] (INDEMNITY) [id number] 3 Brigette Facchini [id number] Brigette Facchini 01/25/2017 1 [employer] (INDEMNITY) [id number] 3 Brigette Facchini [id number] Brigette Facchini 06/27/2018 1 [employer] (INDEMNITY) [id number] 3 Brigette Facchini [id number] Brigette Facchini Notes Date Note Type Note Provider Name and Address Organization Details Recorded Time 01/26/2016 text/html She is here for annual exam, is doing well. She is BRCA positive, had risk reducing BSO in 05/2015. Gwendolyn Jiménez MD [address] [facility],[address], [place], [address], [facility], 01/26/2016 11:18:30 01/25/2017 text/html She is here for annual exam, is doing well. She is BRCA 2 positive, had risk reducing BSO in 05/2015. Pathology was negative. Her last MRI and mammogram were 04/2015, she is overdue. Gwendolyn Jiménez MD [address] [facility],[address], [place], [address], [place] [facility], 01/25/2017 11:26:12 06/27/2018 text/html She is here for annual exam, is BRCA 2 positive, had risk reducing ovarian surgery. She is getting rare mild to moderate vasomotor symptoms. Mammo 05/11, breast screening MRI 05/2018 both negative. She had previously seen Dr. Orlando to discuss risk reducing mastectomy but she had declined, she would like to be part of a high risk program, however. note from 01/2017: She is here for annual exam, is doing well. She is BRCA 2 positive, had risk reducing BSO in 05/2015. Pathology was negative. Her last MRI and mammogram were 04/2015, she is overdue. Tests are both ordered. She understands that she should be getting these tests every 12 months, She agrees to try to be on time next year. We called over and set up the mammogram time for her, will get prior auth and get the MRI set up as well. We had a discussion and offered to send her to consult with a breast surgeon to discuss posible risk reducing bilateral mastectomy. We disucssed how it is done and that she woudl have implants afterward, if she would like to do that. She understands but declines. she is aware that she has a personal risk of development of breast cancer many times that of the average woman, but for now she declines risk reducing surgery. I'm not ready to talk about that right now. She has met Dr. Orlando in the past to discuss this, and liked her, but does not want to do the procedure. Gwendolyn Jiménez MD [address] [facility],[address], [place], [address], [place] [facility], 06/27/2018 16:04:14 OBGyn Episode No OBEpisode recorded.
== END 2024-06-16 09:03 | disposition home or self-care (01) ==
PROVIDERS: PCP Internal Medicine; Visit Provider Internal Medicine
DX: C50.919 Malignant neoplasm of unspecified site of unspecified female breast (principal); Z00.00 Encounter for general adult medical examination without abnormal findings; Z98.890 Other specified postprocedural states; E78.5 Hyperlipidemia, unspecified